=== PATIENT | male | born 1940 | race Caucasian/White ===

== ENCOUNTER 2016-11-09 10:18 | Observation (INO) | payer MEDICARE ==
[~2016-11-09] VITALS: Ht 172.7 cm; Wt 91.5 kg
[2016-11-09] VITALS (7 sets, daily range): BP systolic 135–177; BP diastolic 58–95; PULSE 52–74; RESP 11–22; O2SAT 94–100
[~2016-11-09 10:18] MED LIST: AMOX-363 PO; ASPI325T32 PO; ATRV10T PO; CETI10CA PO; CHOL200047 PO; D ME PO; FLUT9.9S NS; LOSA50TA37 PO; LOV100 SUBQ; MULT-666 PO; OMEP20CA11 PO; TAMS0.4C98 PO; VITA1CAP16 PO; WARF5TAB7 PO; [UNRECOGNIZED DRUG - CODE] PO
[2016-11-09 10:43] LABS: BASOPHILS % (AUTO) 0.6 % (0-3); EOSINOPHILS % (AUTO) 2.2 % (0-5); MONOCYTES % (AUTO) 8.3 % (4-12); Mean Corpuscular Hemoglobin 29.5 pg (27.0-35.0); Mean Corpuscular Volume 86.8 fL (81-100); NEUTROPHILS % (AUTO) 64.3 % (40-74); Platelet Count 184 bil/L (150-400)
[2016-11-09 10:56] LABS: INR 2.15 ratio
[2016-11-09 11:02] LABS: TROPONIN T 0.01 ug/L (0.0-0.011)
[2016-11-09 11:13] LABS: Magnesium 2.2 mg/dL (1.6-2.6)
--- NOTE | 2016-11-09 11:23 | DRSVH ---
PROCEDURE: X-RAY CHEST ONE VIEW, PORTABLE ([id number]) INDICATIONS: chest pain TECHNIQUE: One view of the chest was acquired. COMPARISON: [facility], CT, CT CHEST WO CON, 01/28/2015, 13:09. [facility], CR, XR CHEST 1VW (PORTABLE), 09/06/2015, 0:59. FINDINGS: Surgical changes and devices: None. Lungs and pleura: No pleural effusions or pneumothorax. Lungs are clear. Mediastinum: Mediastinal contours appear normal. Heart size is normal. Bones and chest wall: No suspicious bony lesions. Overlying soft tissues appear unremarkable. IMPRESSION: No acute cardiopulmonary disease. Dictated by: Harsh Keating M.D. on 11/09/2016 at 11:21 Approved by: Harsh Keating M.D. on 11/09/2016 at 11:21
--- NOTE | 2016-11-09 11:45 | ED.REPORT ---
HPI-General Illness Date of Service Nov 09, 2016 ED Provider: Evan Ernst MD Pt is a 76 year old male with a history of lung PE on Coumadin, hyperlipidemia, and HTN who presents to the ED complaining of intermittent left-sided chest pain onset 3 days ago. He reports intermittent left arm numbness and a "strange sensation" in his left jaw. He denies recent falls, lightheadedness, fever, chills, nausea, vomiting, SOB, diarrhea, hematuria, hematochezia, weakness, focal weakness, and any other symptoms. The pt rates his pain as a 5/10 when it is most severe, but he states his pain is currently rated as a 1/10. He describes his chest pain as a "pressure" that is exacerbated with deep breaths. Per pt, his symptoms do not feel similar to when he had a PE previously. Pt presented to with his symptoms and he was referred to the ED for further evaluation Nursing Notes Stated Complaint: CHEST PAIN Chief Complaint: Chest Pain Nursing Notes Reviewed: Yes Allergies: Coded Allergies: ibuprofen (Verified Allergy, Severe, Eyelid Swelling with large doses, ) melatonin (Verified Allergy, Severe, Anxiety/Confusion, 09/06/15) latex (Verified Allergy, Intermediate, ?RASH? ONLY HAPPENED ONCE, 11/09/16) ciprofloxacin (Verified Allergy, Unknown, anxiety, depression, 09/06/15) fluoxetine HCl (Verified Adverse Reaction, Severe, EXTREME Anxiety/ Confusion, 11/09/16) albuterol (Verified Adverse Reaction, Intermediate, COUGH, INCREASED WHEEZE, ANXIETY, 11/09/16) STRAIGHT ALBUTEROL DOESN'T HAVE MUCH EFFECT. *LEVALBUTEROL WORKS BETTER. pseudoephedrine HCl (Verified Adverse Reaction, Mild, ANXIETY, 09/06/15) Scheduled Atorvastatin (Lipitor) 20 Mg Tablet 20 MG PO HS Cholecalciferol (Vitamin D3) (Vitamin D3) 2,000 Unit Capsule 2,000 UNIT PO QAM Losartan Potassium (Losartan Potassium) 50 Mg Tablet 50 MG PO DAILY Multivitamin (Once Daily) 1 Each Tablet 0.5 EACH PO DAILY Pantoprazole DR (Pantoprazole DR) 40 Mg Tablet.dr 40 MG PO DAILY Vitamin B Complex & Vit C No.3 (B Complex with Vitamin C) 1 Each Capsule 1 EACH PO DAILY Warfarin Sodium (Warfarin Sodium) 2.5 Mg Tablet 7.5 MG PO SCHUSTER,MO,MON,MON, Warfarin Sodium (Warfarin Sodium) 5 Mg Tablet 10 MG PO Scheduled PRN Tamsulosin (Flomax) 0.4 Mg Capsule 0.4 MG PO DAILY PRN PRN For Urinary Retention General Time Seen by MD: 10:27 Chief Complaint Chest pain Hx Obtained From: Patient Arrived By: Walk-in Onset Occurred: 3 days ago Symptom Duration: Intermittent Location: : Chest Quality: Painful, Pressure Radiation: : Does not radiate Severity: Current: Pain level 1 out of 10 Severity: Maximum: Pain level 4 out of 10 Recent Healthcare: No recent doctor visit, No recent hospitalization Similar Sx Previous: No Past Medical History Past Medical History sleep apnea echeverria's esophagus viral infection, sinus infections BPH PE Reports: Asthma, Cancer (skin), GERD, Hyperlipidemia, Hypertension Past Surgical History Right knee Reports: Appendectomy Smoking History Former Smoker Social History Alcohol Use: 1-3 per week Drug Use: Denies drug use Other Social History: Ambulatory Status Independent Review of Systems + Jaw pain Full Review of Systems Constitutional: Denies: Chills, Fever, Weakness - generalized Eyes: Denies: Blurred bilateral Ears / Nose / Throat: Denies: Sore throat Respiratory: Denies: Shortness of breath Cardiovascular: Reports: Chest pain GI: Denies: Diarrhea, Hematochezia, Nausea, Vomiting Male: Denies Hematuria Musculoskeletal: Denies: Neck pain Hematologic: Denies Bruising Endocrine: Denies: Polyuria Skin: Denies Itching Neurologic: Reports: Numbness, Denies: Focal weakness, Lightheaded Psychiatric: Denies: Change mental status Complete sys rev & neg: except as marked. Physical Exam Nursing note and vitals reviewed. Constitutional: Well-developed, well-nourished. Not diaphoretic. Head: Normocephalic and atraumatic. Mouth/Throat: Oropharynx is clear and moist. No oropharyngeal exudate. Eyes: EOM are normal. Pupils are equal, round, and reactive to light. Neck: Supple, no tracheal deviation. Cardiovascular: Normal rate, regular rhythm. Equal and intact distal pulses throughout. Pulmonary/Chest: Effort normal and breath sounds normal. No respiratory distress. Abdominal: Soft. No distension. There is no tenderness, rebound, or guarding. Bowel sounds present. Musculoskeletal: Range of motion grossly intact, moving all extremities. No edema or tenderness appreciated. Neurological: AOx3. Grossly nonfocal exam. Strength and sensation intact and equal to bilateral upper and lower extremities. Normal finger to nose testing. No pronator drift. Negative Romberg, unremarkable gait. Skin: Warm and dry, no rashes or pallor appreciated. Psychiatric: Appropriate mood and affect. Behavior appears normal. Vital Signs Vital Signs Date Time Temp Pulse Resp B/P Pulse Ox O2 Delivery O2 Flow Rate FiO2 11/09/16 14:04 61 15 157/60 100 Room Air 11/09/16 12:40 52 11 153/65 97 Room Air 11/09/16 11:44 56 16 143/58 97 Room Air 11/09/16 10:20 36.7 74 16 157/77 98 Room Air Initial VS: Reviewed Interpretation & Diagnostics ANGIOGRAPHY CT: IMPRESSION: No evidence of pulmonary embolism. No acute consolidation. Asymmetric atrophy of the left teres minor muscle. If clinically warranted, left shoulder MRI could be performed for further assessment Dictated by: Mao Drummond M.D. on 11/09/2016 at 14:27 Lab Results Interpretation Result Diagram: 11/09/16 1030 11/09/16 1030 Test 11/09/16 10:30 11/09/16 12:37 White Blood Count 6.4th/mm3 (3.8-10.1) Red Blood Count 5.29mil/mm3 (4.40-5.80) Hemoglobin 15.6g/dL (13.8-17.2) Hematocrit 45.9% (41.0-50.0) Mean Corpuscular Volume 86.8fL (81-100) Mean Corpuscular Hemoglobin 29.5pg (27.0-35.0) Mean Corpuscular Hemoglobin Concent 34.0% (32.0-37.0) Red Cell Distribution Width 14.5% (12.3-15.4) Platelet Count 184bil/L (150-400) Neutrophils (%) (Auto) 64.3% (40-74) Lymphocytes (%) (Auto) 24.3% (14-46) Monocytes (%) (Auto) 8.3% (4-12) Eosinophils (%) (Auto) 2.2% (0-5) Basophils (%) (Auto) 0.6% (0-3) Prothrombin Time 23.4sec (8.1-12.5) Prothromb Time International Ratio 2.15ratio Activated Partial Thromboplast Time 38.0sec (22.8-33.0) Sodium Level 139mEq/L (134-144) Potassium Level 4.4mEq/L (3.5-5.2) Chloride Level 102mEq/L (97-108) Carbon Dioxide Level 23mmol/L (18-29) Blood Urea Nitrogen 18mg/dL (8-27) Creatinine 1.00mg/dL (0.76-1.27) Estimat Glomerular Filtration Rate 77mL/min (>59) Glucose Level 102mg/dL (60-99) Calcium Level 9.1mg/dL (8.5-10.1) Magnesium Level 2.2mg/dL (1.6-2.6) Total Bilirubin 0.4mg/dL (0.0-1.2) Aspartate Amino Transf (AST/SGOT) 26U/L (0-50) Alanine Aminotransferase (ALT/SGPT) 34U/L (0-44) Alkaline Phosphatase 70U/L (25-160) Pro-B-Type Natriuretic Peptide 38.64pg/mL (0-486) Total Protein 7.4g/dL (6.4-8.4) Albumin 4.1g/dL (3.4-5.0) Troponin T < 0.010ug/L (0.0-0.011) ECG Interpretation ECG Interpretation: Sinus rhythm with a rate of 58 Borderline prolonged VA interval Low voltage, precordial leads Time: 10:39 Interpreted by: ED physician X-Ray Chest Interpretation Chest Xray Interpretation: IMPRESSION: No acute cardiopulmonary disease. Dictated by: Harsh Keating M.D. on 11/09/2016 at 11:21 View: Portable, 1 view Interpretation / Wet Read by: Interpret - Radiologist Re-Eval/Medical Decision Med Decision/Clinical Course In summary, 76-year-old male with a PMHx notable for pulmonary embolus who presents to the ED for evaluation of nonexertional midsternal chest pain. Differential includes ACS, PE, PTX, aortic dissection, myocarditis/pericarditis , abdominal etiology such as cholecystitis, MSK pain. Pain has been constant and gradually improving since onset; troponin negative. HEART score of 5. EKG demonstrates sinus rhythm with no acute ischemic changes. Given his history, I am concerned for pulmonary embolus; however, CT scan of the patient's chest negative for PE. No evidence of pneumothorax on imaging or exam. Pain not described as tearing through to the back, CXR w/ no evidence of widened mediastinum, normal neuro exam, and equal pulses to bilateral upper and lower extremities; aortic dissection seems very unlikely. Neither clinical presentation, exam, or EKG seem c/w pericarditis or myocarditis. No abdominal pain or tenderness. Laboratory studies reviewed, notable for a CBC grossly within normal limits, CMP grossly within normal limits, negative troponin, BNP within normal limits, INR 2.15. Chest x-ray negative for acute abnormalities. Patient given aspirin here in the ED. Patient would likely benefit from a stress test for risk stratification given his risk factors. Plan admission for further management and evaluation, stress test, echo. Patient agreeable to plan , no further questions. Source of Hx: Old records Time of Eval: 12:19 Re-Evaluation/Progress Note: Informed pt of plan for admission. Pt undestands and agrees with plan for admission. All questions addressed. Consultation : Referral / Consult Name: Jareth Cast MD Consulted With: Hospitalist Call Returned at: 15:09 Billing Administrator: Will see patient, Agrees with eval, Agrees with plan, Accepts admit Counseled Regarding: Diagnosis, Lab results, Need for admission Discharge & Departure Primary Impression: Chest pain Chest pain type: unspecified Qualified Code: R07.9 - Chest pain, unspecified Disposition: ADMITTED TO HOSPITAL Discharge Condition All VS Reviewed: Yes Condition: Stable Referrals: Jose Tran MD (PCP) Igoribjohnson Attestation Portions of this note were transcribed by Ember Otero. I, Dr. Ernst personally performed the history, physical exam and medical decision-making; I reviewed and confirmed the accuracy of the information in the transcribed note. Signed by: Shraddha Zarco, 11/09/16. copies to: Jose Tran MD, William B MD Nov 09, 2016 11:44 Ember Lora Nov 09, 2016 12:14
[2016-11-09] MEDS ORDERED: PANT40TA3 PO (12:49)
[2016-11-09] MEDS ORDERED: WARF2.5T82 PO (12:49)
[2016-11-09] MEDS ORDERED: WARF5TAB7 PO (12:49)
[2016-11-09] MEDS ORDERED: ATOR20TA PO (13:14)
--- NOTE | 2016-11-09 14:36 | DRSVH ---
PROCEDURE: CT ANGIO CHEST PULMONARY EMBOLISM ([id number]) INDICATIONS: chest pressure, hx of PE TECHNIQUE: After the administration of intravenous contrast, 2 mm thick sections acquired from the pulmonary api gerda to the posterior costophrenic angles. 3-dimensional maximum intensity projection (MIP) coronal a nd sagittal reformats were then acquired through the thorax. For radiation dose reduction, the follo wing was used: automated exposure control, adjustment of mA and/or kV according to patient size. COMPARISON: [facility], CT, CT ANGIO CHEST PE, 10/09/2014, 16:52. FINDINGS: Image quality: Excellent. Pulmonary arteries: Pulmonary arteries are normal in size, and demonstrate no intraluminal filling d efects to suggest central pulmonary embolism. Lungs and pleura: Lungs are clear. No pleural effusions or pneumothorax. Central and peripheral ai rways are patent. Mediastinum: Heart size is normal, without pericardial effusion. No mediastinal or hilar adenopathy . Thoracic aorta is normal in caliber and enhancement. Esophagus is normal in caliber, without hiat al hernia. Bones and chest wall: No suspicious bony lesions. Ribs and thoracic spine appear intact throughout. Thyroid gland unremarkable. There is asymmetric atrophy of the left teres minor muscle. No axillar y or supraclavicular adenopathy. Presumed subcentimeter vertebral body bone island on image 11 serie s 6, technically nonspecific. Abdomen: Visualized upper abdominal solid organs appear normal in the early arterial phase of enhanc ement. IMPRESSION: No evidence of pulmonary embolism. No acute consolidation. Asymmetric atrophy of the left teres minor muscle. If clinically warranted, left shoulder MRI could b e performed for further assessment Dictated by: Mao Drummond M.D. on 11/09/2016 at 14:27 Approved by: Mao Drummond M.D. on 11/09/2016 at 14:34
[2016-11-09] MEDS ORDERED: Polyethylene Glycol (PEG) 17 Gm Powder PO PRN (15:40)
[2016-11-09] MEDS ORDERED: Ondansetron 2 mg/mL 2 mL Inj IVPUSH PRN (15:40)
[2016-11-09] MEDS ORDERED: Alum-Mag Hydrox-Simeth 30 mL Suspension PO PRN (15:40)
--- NOTE | 2016-11-09 15:41 | PCM.HPMED ---
Subjective Date of Service Nov 09, 2016 Primary Provider: Admitting Physician: Jareth Cast MD Primary Care Physician: Jose Tran MD Attending Physician: Jareth Cast MD Admit Status: From the Emergency Department, 23-Hour Observation Chief Complaint: pleuritic epigastric and chest pain/3 days Left jaw pain/1 day History of Present Illness: 76-year-old gentleman with past medical history of pulmonary embolism on Coumadin, hypertension, hyperlipidemia, BPH,GERD, Echeverria's esophagus presented with pleuritic pain in epigastric area and chest . He states he started to have intermittent, pleuritic pain more on epigastric area 3 days ago. Pain has been stable but worsened today which prompted ED visit. No diaphoresis or dyspnea. He also felt some dull aching lower abdominal pain earlier today. No diarrhea. He also had left-sided jaw pain yesterday night which resolved. Patient is a retired teacher. He walks on treadmill for 30 minutes without chest pain or dyspnea until few days ago. ED course : Vitals and exam unremarkable. EKG unremarkable.CTA chest negative for PE.troponin x2 negative.INR 2.5 Admission requested for workup of chest pain. Review of Systems: Comprehensive review of systems performed, pertinent positives and negatives included in history of present illness Allergies Coded Allergies: ibuprofen (Verified Allergy, Severe, Eyelid Swelling with large doses, ) melatonin (Verified Allergy, Severe, Anxiety/Confusion, 09/06/15) latex (Verified Allergy, Intermediate, ?RASH? ONLY HAPPENED ONCE, 11/09/16) ciprofloxacin (Verified Allergy, Unknown, anxiety, depression, 09/06/15) fluoxetine HCl (Verified Adverse Reaction, Severe, EXTREME Anxiety/ Confusion, 11/09/16) albuterol (Verified Adverse Reaction, Intermediate, COUGH, INCREASED WHEEZE, ANXIETY, 11/09/16) STRAIGHT ALBUTEROL DOESN'T HAVE MUCH EFFECT. *LEVALBUTEROL WORKS BETTER. pseudoephedrine HCl (Verified Adverse Reaction, Mild, ANXIETY, 09/06/15) Home Medications Atorvastatin (Lipitor) 20 Mg Tablet 20 MG PO HS Cholecalciferol (Vitamin D3) (Vitamin D3) 2,000 Unit Capsule 2,000 UNIT PO QAM Losartan Potassium (Losartan Potassium) 50 Mg Tablet 50 MG PO DAILY Multivitamin (Once Daily) 1 Each Tablet 0.5 EACH PO DAILY Pantoprazole DR (Pantoprazole DR) 40 Mg Tablet.dr 40 MG PO DAILY Vitamin B Complex & Vit C No.3 (B Complex with Vitamin C) 1 Each Capsule 1 EACH PO DAILY Warfarin Sodium (Warfarin Sodium) 2.5 Mg Tablet 7.5 MG PO SCHUSTER,MO,WED,FRI,SA Warfarin Sodium (Warfarin Sodium) 5 Mg Tablet 10 MG PO , Scheduled PRN Tamsulosin (Flomax) 0.4 Mg Capsule 0.4 MG PO DAILY PRN PRN For Urinary Retention PMH GERD/echeverria's esophagus sinus infections BPH history of PE Cough variant Asthma, Cancer (skin), 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 patient is lying comfortably in hospital bed HEENT: Head is normocephalic atraumatic, Pupils equal and reactive, extraocular movements intact, Lungs clear to auscultation bilaterally Heart regular rate and rhythm without murmurs gallops or rubs Abdomen soft nontender without hepatosplenomegaly Extremities pulses are present dorsalis pedis posterior tibialis and radial. tSkin is warm and dry there are no rashes, Psych alert and oriented to person place and time Neuro cranial nerves II through XII are grossly intact Lymph: There is no lymphadenopathy appreciated in the cervical supra infraclavicular regions : no ma Lab and Diagnostics Result Diagram: 11/09/16 1030 11/09/16 1030 X-Rays, CTs and MRIs PROCEDURE: CT ANGIO CHEST PULMONARY EMBOLISM ([id number]) INDICATIONS: chest pressure, hx of PE IMPRESSION: No evidence of pulmonary embolism. No acute consolidation. Asymmetric atrophy of the left teres minor muscle. If clinically warranted, left shoulder MRI could be performed for further assessment Dictated by: Mao Drummond M.D. on 11/09/2016 at 14:27 12-lead ECG NSR Assessment & Plan 76-year-old gentleman with past medical history of pulmonary embolism on Coumadin, hypertension, hyperlipidemia, BPH,GERD, Echeverria's esophagus presented with pleuritic pain in epigastric area and chest . # Epigastric/chest pleuritic pain,poa,acute -likely due to GERD -continue home pantoprazole - EKG unremarkable.CTA chest negative for PE.troponin x2 negative. -will do ACS work up given significant family history of NE,will do exercise stress test and echocardiogram -Telemetry -ASA 320 mg given in ED,c/w 81mg daily for now pending workup ,c/w home statin # History of PE -INR therapeutic -Continue Coumadin -CTA negative # HTN/HLD/BPH -Continue home medications Full code Observation status. Possible discharge tomorrow after echo and stress test Resuscitation Status: CPR: Attempt Resuscitation copies to: Jose Tran MD, Melaku MD Nov 09, 2016 15:41
--- NOTE | 2016-11-09 17:34 | NUR ---
admit pt admitted from ED for chest pain that is now resolved. pt transfers himself out of rlentner and into hospital bed. pt ambulating and making phone calls by the time this RN came into the room. pt is to be NPO at midnight for a 0730 stress test 11/10/16. pt is A&O, skin looks unremarkable.
[2016-11-09] MEDS ORDERED: Warfarin 5 MG, Warfarin 2.5 MG PO ONE ×2 (18:40)
--- NOTE | 2016-11-09 18:40 | PCM.CONPHA ---
Subjective pleuritic epigastric and chest pain/3 days Left jaw pain/1 day Reason for Pharmacy Consult: Anticoagulation Management Assessment/Plan Assessment/Plan Warfarin Management by Pharmacy Indication: Hx of PE Home Dose: 10 MG /; 7.5 MG AOD INR Goal: 2-3 Duration: Chronic INR: 2.15 Assessment/Plan -Therapeutic INR. Last dose taken on 11/08 per pt report -Will restart pt home regimen with 7.5 mg due this evening. -Pharmacy to monitor INR/CBC/signs of bleeding while inpatient. Thanks, Elliot Hathaway Pharm.D. Elliot Hathaway Nov 09, 2016 18:40
--- NOTE | 2016-11-09 18:53 | DRSVH ---
[facility] [address] [place] [address] Echocardiogram Report Name: ARACELI PARRA Date: 11/09/2016 Height: 68 in Hospital Exam Location: [facility] Weight: 198 lb Gender: Male BSA: 2.0 m2 : 1940 Age: 76 yrs BP: 177/95 mmHg Reason For Study: Chest pain Ordering Physician: HOSPITALIST [facility] Performed By: Tai Conklin Referring Physician: SIMBA FLORES Interpretation Summary The left ventricle is normal in size. The ejection fraction is estimated to be 55-60%. There are no focal wall motion abnormalities. The right ventricle grossly appears normal in size with probable normal systolic function. Both atria are normal in size. There is no hemodynamically significant valvular aortic stenosis. Right ventricular systolic pressure is estimated to be 27 mmHg plus the clinically estimated CVP which cannot be estimated on this exam. There is no pericardial effusion. No other echocardiographic abnormalities seen. No obvious cause for the patients chest pain is identified on this exam. Procedure: A two-dimensional transthoracic echocardiogram with color flow and Doppler was performed. The study quality was technically difficult. A contrast injection of Definity was performed to improve assessment of LV function. Comparison is made with the echocardiogram of 10/10/14. The patient was in sinus bradycardia with heart rates between 51-59 bpm during the exam. Left Ventricle: The left ventricle is normal in size. There is normal left ventricular wall thickness. The ejection fraction is estimated to be 55-60%. There are no focal wall motion abnormalities. Right Ventricle: The right ventricle grossly appears normal in size with probable normal systolic function. Atria: Both atria are normal in size. Mitral Valve: The mitral valve is grossly normal. There is no mitral regurgitation noted. Aortic Valve: The aortic valve is not well visualized. There is no hemodynamically significant valvular aortic stenosis. No aortic regurgitation is present. Tricuspid Valve: The tricuspid valve is not well visualized, but is grossly normal. There is mild tricuspid regurgitation. Right ventricular systolic pressure is estimated to be 27 mmHg plus the clinically estimated CVP which cannot be estimated on this exam. Pulmonic Valve: The pulmonic valve is not well visualized. Great Vessels: The aortic root is normal size. The ascending aorta is mildly enlarged. The pulmonary artery is not well visualized, but is probably normal size. The inferior vena cava was not well visualized. Pericardium/ Pleura There is no pericardial effusion. There is no pleural effusion. MMode/2D Measurements & Calculations LVIDd: 4.7 cm RA long axis LVOT diam LVIDs: 3.6 cm LA A2 area: 18.9 cm FS: 22.3 % LA A4 area: 17.4 cm RA area AoV Opening LA length (vol): 5.2 cm LA vol: 53.7 ml : 14.9 cm Ao root diam LA vol index RA vol : 37.8 ml asc Aorta : 26.4 ml/m2 RA Diam: 3.8 cm : 18.6 mm2 LV rader. diameter/BSA LV sys. diameter/BSA TAPSE: 2.2 cm (cm/m^2): 2.3 (cm/m^2): 1.8 Doppler Measurements & Calculations Ao V2 max MV E max hong MV E/A: 1.3 TR max hong : 140.9 cm/sec : 93.6 cm/sec Med Peak E' Hong : 260.7 cm/sec Ao max P.9 mmHg MV A max hong TR max PG Ao mean P.0 mmHg : 70.2 cm/sec E/E' med: 10.9 : 27.2 mmHg LVOT Max Hong Lat Peak E' Hong PA V2 max : 96.3 cm/sec : 93.0 cm/sec LUCY(I,D): 2.8 cm E/E' lat: 7.7 PA mean PG sev ratio: 0.71 E/e' average: 9.3 : 2.3 mmHg MV dec time: 0.17 sec Ao V2 mean LV V1 max PG PA V2 mean : 93.9 cm/sec : 73.9 cm/sec Ao V2 VTI LV V1 VTI: 20.0 cm PA pr(Accel) : 41.6 mmHg LUCY(V,D): 2.7 cm2 LUCY indexed to BSA (cm^2/m^2): 1.4 Reading Physician:06:52 PM
--- NOTE | 2016-11-09 20:15 | NUR ---
Case Management: MAURISIO explained to patient at 2009, all questions answered. Signed original placed in chart, copy given to patient. Leena Delarosa RN
[2016-11-09 23:39] LABS: APPEARANCE,URINE CLEAR (CLEAR,HAZY); COLOR,URINE YELLOW (YELLOW); OCCULT BLOOD,URINE TRACE (NEGATIVE); PH,URINE 6.5 (5.0-8.0); UROBILINOGEN,URINE NORMAL (NORMAL)
[2016-11-10 01:13] VITALS: BP 134/74; PULSE 51; RESP 20; O2SAT 97
[2016-11-10 05:04] VITALS: PULSE 62
[2016-11-10 05:08] VITALS: BP 144/82; PULSE 50; RESP 20; O2SAT 96
--- NOTE | 2016-11-10 05:34 | NUR ---
Activity/Tele Pt was able to ambulate the hallways without assistance and with a steady gait. Pt denies shortness of breath, chest pain/pressure, and nausea. Pt has been NPO after midnight and denies pain. Tele: Sinus Rashi hr 50 per nanoscience technician. Care continues.
[2016-11-10 06:07] LABS: BASOPHILS % (AUTO) 0.5 % (0-3); EOSINOPHILS % (AUTO) 3.2 % (0-5); Mean Corpuscular Volume 86.3 fL (81-100); NEUTROPHILS % (AUTO) 61.3 % (40-74); Platelet Count 190 bil/L (150-400)
[2016-11-10 06:15] LABS: INR 2.26 ratio
[2016-11-10 07:11] LABS: Magnesium 2.3 mg/dL (1.6-2.6); TROPONIN T 0.01 ug/L (0.0-0.011)
[2016-11-10] MEDS ORDERED: Pantoprazole 40 mg ER24 Tablet PO SCH (07:30)
[2016-11-10 08:00] VITALS: PULSE 49
--- NOTE | 2016-11-10 08:20 | NUR ---
OFF FLOOR PT OFF FLOOR FOR STRESS TEST
[2016-11-10] MEDS ORDERED: Vitamin B Complex/Vit C Tablet PO SCH (08:30)
[2016-11-10 10:50] VITALS: BP 138/85; PULSE 70; RESP 20; O2SAT 97
[2016-11-10 13:19] VITALS: BP 160/75; PULSE 61; RESP 20; O2SAT 97
--- NOTE | 2016-11-10 13:48 | DRSVH ---
PROCEDURE: 1 DAY TREADMILL STRESS TEST Rest and exercise myocardial perfusion SPECT with gated imaging and ejection fraction RADIOPHARMACEUTICAL: 7.9 mCi Tc-99m tetrafosmin IV at rest and 25.6 mCi Tc-99m tetrafosmin IV at pea k exercise. [id number] was performed. INDICATIONS: Chest pain. TECHNIQUE: Radiopharmaceutical was injected at peak stress test, and also at rest. SPECT images wer e obtained. SPECT myocardial perfusion images were displayed in short axis, horizontal long axis, an d vertical long axis views. Gated images were reviewed using [employer] software. COMPARISON: None. CARDIAC STRESS: A standard Jose treadmill exercise tolerance test was performed by the patient under the supervision of an attending staff. The patient exercised for 7 minutes and 27 seconds; Hemodynamic data: There is normal blood pressure and heart rate response to exercise stress. Patien t achieved 92% of maximum predicted heart rate at peak exercise. Symptoms: Patient denied chest pain during exercise. EKG: No diagnostic EKG changes of ischemia. Isolated PVCs and occasional couplets seen in exercise and recovery. FINDINGS: Raw data: There is good myocardial labeling by radiotracer. Some motion artifacts. Left ventricle function: Gated images demonstrate normal left ventricular systolic function The lef t ventricle resting end-diastolic volume is 95 mL. Left ventricle stress ejection fraction is 60% ; normal values are above 45%. Myocardial perfusion: There is a small to moderate sized area of moderately decreased uptake affecti ng the inferior/inferolateral wall that is fixed (and somewhat worse on the rest images). This laurie lizes on the prone imaging. No other imaging defects are appreciated. IMPRESSION: 1. Appropriate hemodynamic response to exercise. 2. No chest pain or diagnostic ECG changes with stress. Isolated PVCs and couplets seen in exercise and recovery. 3. No scintigraphic evidence for significant areas of myocardial ischemia at the level of stress achi eved. 4. Normal left ventricular size and systolic function Dictated by: Maribeth Beatty M.D. on 11/10/2016 at 13:39 Approved by: Maribeth Beatty M.D. on 11/10/2016 at 13:47
--- NOTE | 2016-11-10 13:51 | NUR ---
Social Work-initial assessment/ readiness for discharge: Data:See initial assessment. Pt is a 76 y/o male who was admitted on 11/09/16 for chest pain per H&P. Pt's insurance is [employer] and PCP is Jose Tran MD. EMR reviewed. Pt's readmission score is 2. SW met with pt at bedside, SW role explained. pt is alert and oriented x3. Pt resides at home with his where he remains independent with ADLS. Pt drives and does not use any DME. Pt has no HH or SNF history. Pt has no snf care insurance or VA benefits. SW discussed DPOA/ advanced directive, pt confirms he has completed this, SW encouraged a copy to be brought in. No concerns noted around pt's capacity for self care per RN and MD. Pt has been up independent in his room. SW provided pt with discharge planning checklist and encouraged pt to call with any questions, phone number provided on white board in the room. Pt to transport himself home. No anticipated discharge needs. SW will continue to follow if needs arise. Assessment:Pt who is independent at baseline. Plan:Pt to discharge home when medically stable via POV. No anticipated discharge needs. SW will continue to follow if needs arise. NITIN Graff Addendum: 11/10/16 at 1359 by JIL ABRAHAM Amended: Links added.
--- NOTE | 2016-11-10 14:04 | PCM.DIMED ---
Discharge Instructions Date of Service Nov 10, 2016 Dates of Hospitalization Nov 09, 2016 at 15:05 Discharge Diagnosis Discharge Diagnosis # Epigastric/chest pleuritic pain,poa,acute -likely due to GERD ACS and PE ruled out # History of PE # HTN/HLD/BPH Diet Discharge Diet: Low fat, Low Sodium Activity Discharge Activity: Limited until seen by PCP Call your provider Call your provider for: Fever or Chills, Shortness of breath, Bleeding, Chest pain, Vomitting, Excessive diarrhea, Weakness (unilateral) Patient Instructions Patient Instructions You were hospitalized due to epigastric/chest pain. Pain probably due to acid reflux. Continue home pantoprazole. Echocardiogram and stress test are unremarkable.please continue home medications as usual. Follow-up with PCP in 1 week. Follow-up Provider: Jose Tran MD Follow-up with PCP in: 1 week Jareth Cast MD Nov 10, 2016 14:04
--- NOTE | 2016-11-10 14:34 | NUR ---
discharge paperwork reviewed, no questions at this time. pt denies pain/distress/CP. pt refuses W/C ride. pt transports himself via private car to private home. pt thanks the staff for excellent care.
--- NOTE | 2016-11-10 16:22 | PCM.DC.MED ---
Discharge Summary Date of Service Nov 10, 2016 Dates of Hospitalization Date of Hospital Admission Nov 09, 2016 at 15:05 Date of Discharge: Nov 10, 2016 Providers: Admitting Physician: Jareth Cast MD Primary Care Physician: Jose Tran MD Attending Physician: Jareth Cast MD Diagnosis at Time of Discharge Diagnosis at Time of Discharge # Epigastric/chest pleuritic pain,poa,acute -likely due to GERD ACS and PE ruled out # History of PE # HTN/HLD/BPH Procedures XRay, CTs & MRIs PROCEDURE: CT ANGIO CHEST PULMONARY EMBOLISM ([id number]) INDICATIONS: chest pressure, hx of PE IMPRESSION: No evidence of pulmonary embolism. No acute consolidation. Asymmetric atrophy of the left teres minor muscle. If clinically warranted, left shoulder MRI could be performed for further assessment Dictated by: aMo Drummond M.D. on 11/09/2016 at 14:27 ECG 12 Lead NSR Cardiac Echo Impression 11/10 Interpretation Summary The left ventricle is normal in size. The ejection fraction is estimated to be 55-60%. There are no focal wall motion abnormalities. The right ventricle grossly appears normal in size with probable normal systolic function. Both atria are normal in size. There is no hemodynamically significant valvular aortic stenosis. Right ventricular systolic pressure is estimated to be 27 mmHg plus the clinically estimated CVP which cannot be estimated on this exam. There is no pericardial effusion. No other echocardiographic abnormalities seen. No obvious cause for the patients chest pain is identified on this exam. Other Diagnostics PROCEDURE: 1 DAY TREADMILL STRESS TEST Rest and exercise myocardial perfusion SPECT with gated imaging and ejection fraction RADIOPHARMACEUTICAL: 7.9 mCi Tc-99m tetrafosmin IV at rest and 25.6 mCi Tc-99m tetrafosmin IV at peak exercise. [id number] was performed. INDICATIONS: Chest pain. IMPRESSION: 1. Appropriate hemodynamic response to exercise. 2. No chest pain or diagnostic ECG changes with stress. Isolated PVCs and couplets seen in exercise and recovery. 3. No scintigraphic evidence for significant areas of myocardial ischemia at the level of stress achieved. 4. Normal left ventricular size and systolic function Dictated by: Maribeth Beatty M.D. on 11/10/2016 at 13:39 Brief History per HPI 76-year-old gentleman with past medical history of pulmonary embolism on Coumadin, hypertension, hyperlipidemia, BPH,GERD, Cabrales's esophagus presented with pleuritic pain in epigastric area and chest . He states he started to have intermittent, pleuritic pain more on epigastric area 3 days ago. Pain has been stable but worsened today which prompted ED visit. No diaphoresis or dyspnea. He also felt some dull aching lower abdominal pain earlier today. No diarrhea. He also had left-sided jaw pain yesterday night which resolved. Patient is a retired teacher. He walks on treadmill for 30 minutes without chest pain or dyspnea until few days ago. ED course : Vitals and exam unremarkable. EKG unremarkable.CTA chest negative for PE.troponin x2 negative.INR 2.5 Admission requested for workup of chest pain. Hospital Course 76-year-old gentleman with past medical history of pulmonary embolism on Coumadin, hypertension, hyperlipidemia, BPH,GERD, Cabrales's esophagus presented with pleuritic pain in epigastric area and chest . # Epigastric/chest pleuritic pain,poa,acute -likely due to GERD -continue home pantoprazole - EKG unremarkable.CTA chest negative for PE.troponin x2 negative. - ACS work up done given significant family history of ME, exercise stress test and echocardiogram unremarkable -Telemetry unrevealing. He had doublets and frequent PVCs during stress test. May need to consider beta lida if he has any palpitations in the future -ASA 320 mg given in ED, continued 81mg daily pending workup , discontinue aspirin upon discharge. C/w home statin # History of PE -INR therapeutic -Continue Coumadin -CTA negative # HTN/HLD/BPH -Continue home medications Full code Discharge to home Condition on discharge stable Exam Vital Signs (Last) Date Time Temp Pulse Resp B/P Pulse Ox O2 Delivery O2 Flow Rate FiO2 11/10/16 13:19 36.7 61 20 160/75 97 Room Air Exam Gen. patient is lying comfortably in hospital bed HEENT: Head is normocephalic atraumatic, Pupils equal and reactive, extraocular movements intact, Lungs clear to auscultation bilaterally Heart regular rate and rhythm without murmurs gallops or rubs Abdomen soft nontender without hepatosplenomegaly Extremities pulses are present dorsalis pedis posterior tibialis and radial. tSkin is warm and dry there are no rashes, Psych alert and oriented to person place and time Neuro cranial nerves II through XII are grossly intact Lymph: There is no lymphadenopathy appreciated in the cervical supra infraclavicular regions : no ma Test 11/09/16 10:30 11/09/16 23:20 11/10/16 05:40 Activated Partial Thromboplast Time 38.0sec (22.8-33.0) Pro-B-Type Natriuretic Peptide 38.64pg/mL (0-486) Urine Color Yellow (YELLOW) Urine Appearance Clear (CLEAR,HAZY) Urine pH 6.5 (5.0-8.0) Urine Specific [place] 1.010 (1.003-1.035) Urine Protein Negativemg/dL (NEG,TRACE) Urine Glucose (UA) Negativemg/dL (NEGATIVE) Urine Ketones Negativemg/dL (NEGATIVE) Urine Occult Blood Trace (NEGATIVE) Urine Nitrite Negative (NEGATIVE) Urine Bilirubin Negative (NEGATIVE) Urine Urobilinogen Normalmg/dL (NORMAL) Urine Leukocyte Esterase Negative (NEGATIVE) Urine RBC 0-2/hpf (0-2) Urine WBC 0-5/hpf (0-5) Urine Epithelial Cells Occasional/hpf (NONE-MOD) Urine Crystals None seen (NONE SEEN) Urine Bacteria None/hpf (NONE-FEW) Urine Hyaline Casts None/lpf (NONE) Urine Granular Casts None seen (NONE SEEN) Urine Waxy Casts None seen (NONE SEEN) Urine Red Blood Cell Casts None seen (NONE SEEN) Urine White Blood Cell Casts None seen (NONE SEEN) Urine Mucus None seen (None Seen) Urine Trichomonas None seen (NONE SEEN) Urine Yeast None (NONE SEEN) Urinalysis Comment None Urine Culture Reflexed Not indicated White Blood Count 6.2th/mm3 (3.8-10.1) Red Blood Count 5.31mil/mm3 (4.40-5.80) Hemoglobin 15.4g/dL (13.8-17.2) Hematocrit 45.8% (41.0-50.0) Mean Corpuscular Volume 86.3fL (81-100) Mean Corpuscular Hemoglobin 29.0pg (27.0-35.0) Mean Corpuscular Hemoglobin Concent 33.6% (32.0-37.0) Red Cell Distribution Width 14.4% (12.3-15.4) Platelet Count 190bil/L (150-400) Neutrophils (%) (Auto) 61.3% (40-74) Lymphocytes (%) (Auto) 24.5% (14-46) Monocytes (%) (Auto) 10.0% (4-12) Eosinophils (%) (Auto) 3.2% (0-5) Basophils (%) (Auto) 0.5% (0-3) Prothrombin Time 24.6sec (8.1-12.5) Prothromb Time International Ratio 2.26ratio Sodium Level 139mEq/L (134-144) Potassium Level 4.0mEq/L (3.5-5.2) Chloride Level 104mEq/L (97-108) Carbon Dioxide Level 19mmol/L (18-29) Blood Urea Nitrogen 18mg/dL (8-27) Creatinine 0.96mg/dL (0.76-1.27) Estimat Glomerular Filtration Rate 81mL/min (>59) Glucose Level 103mg/dL (60-99) Calcium Level 8.6mg/dL (8.5-10.1) Magnesium Level 2.3mg/dL (1.6-2.6) Total Bilirubin 0.3mg/dL (0.0-1.2) Aspartate Amino Transf (AST/SGOT) 24U/L (0-50) Alanine Aminotransferase (ALT/SGPT) 32U/L (0-44) Alkaline Phosphatase 69U/L (25-160) Troponin T 0.010ug/L (0.0-0.011) Total Protein 6.8g/dL (6.4-8.4) Albumin 4.1g/dL (3.4-5.0) Discharge Medications Discharge Medications Atorvastatin (Lipitor) 20 Mg Tablet 20 MG PO HS (Reported) Cholecalciferol (Vitamin D3) (Vitamin D3) 2,000 Unit Capsule 2,000 UNIT PO QAM ( Reported) Losartan Potassium (Losartan Potassium) 50 Mg Tablet 50 MG PO DAILY (Reported) Multivitamin (Once Daily) 1 Each Tablet 0.5 EACH PO DAILY (Reported) Pantoprazole DR (Pantoprazole DR) 40 Mg Tablet.dr 40 MG PO DAILY (Reported) Vitamin B Complex & Vit C No.3 (B Complex with Vitamin C) 1 Each Capsule 1 EACH PO DAILY (Reported) Warfarin Sodium (Warfarin Sodium) 2.5 Mg Tablet 7.5 MG PO SCHUSTER,MO,WED,FRI,SA ( Reported) Warfarin Sodium (Warfarin Sodium) 5 Mg Tablet 10 MG PO (Reported) As needed Tamsulosin (Flomax) 0.4 Mg Capsule 0.4 MG PO DAILY PRN PRN For Urinary Retention (Reported) Followup Plan Disposition: Home Discharge Diet: Low fat, Low Sodium Discharge Activity: Limited until seen by PCP Patient Instructions You were hospitalized due to epigastric/chest pain. Pain probably due to acid reflux. Continue home pantoprazole. Echocardiogram and stress test are unremarkable.please continue home medications as usual. Follow-up with PCP in 1 week. Follow-up Provider: Jose Tran MD Follow-up with PCP in: 1 week copies to: Jose Tran MD, Melaku MD Nov 10, 2016 16:22
== END 2016-11-10 14:36 | disposition home or self-care (01) ==
LOC: SED 10:18 → MPC 15:05
PROVIDERS: ADMIT Internal Medicine; ATTEND Internal Medicine
DX: R07.89 Other chest pain (principal); I10 Essential (primary) hypertension; E78.5 Hyperlipidemia, unspecified; N40.0 Benign prostatic hyperplasia without lower urinary tract symptoms; Z86.711 Personal history of pulmonary embolism; K21.9 Gastro-esophageal reflux disease without esophagitis; K22.70 Barrett's esophagus without dysplasia; J45.991 Cough variant asthma; G47.30 Sleep apnea, unspecified; Z87.891 Personal history of nicotine dependence; Z79.01 Long term (current) use of anticoagulants
CPT/HCPCS: 36415; 71010; 71275; 78452; 80053; 81000; 83735; 83880; 84484; 85025; 85610; 85730; 93005; 93017; 99285; A9502; C8929; G0378; G0463; Q9957; Q9967